=== PATIENT | female | born 1990 | race Caucasian/White ===

== ENCOUNTER → 2020-11-05 09:05 | Outpatient (BNVA) | payer MEDICAID, SELFPAY | PROVIDERS: PCP Nurse Practitioner Family; Visit Provider Physician Assistant ==

== ENCOUNTER 2020-11-23 10:03 | Outpatient (REF) | payer MEDICAID, SELFPAY ==
--- NOTE | ~2020-11-23 | XR_ITS ---
EXAMINATION: XR CHEST CLINICAL INFORMATION: Obesity. COMPARISON: None. TECHNIQUE: 2 views of the chest were obtained. FINDINGS: The lungs are clear. The cardiomediastinal silhouette is normal in size. There is no pleural effusion or pneumothorax. No acute osseous abnormality. Right upper quadrant surgical clips. XR/XR chest 2V IMPRESSION: No acute cardiopulmonary findings.
--- NOTE | 2020-11-23 10:12 | ECG_ITS ---
Test Reason : E66.01 Blood Pressure : / mmHG Vent. Rate : 064 BPM Atrial Rate : 064 BPM P-R Int : 156 ms QRS Dur : 082 ms QT Int : 400 ms P-R-T Axes : 034 043 031 degrees QTc Int : 412 ms Normal sinus rhythm Normal ECG No previous ECGs available Referred By: Wilson Nunn Electronically Signed By:VELIA JOHNSON
[2020-11-23 10:53] LABS: MANUAL DIFF FLAG NO
[2020-11-23 11:02] LABS: Basophils Percent Auto 0.2 % (0-2); Eosinophils Percent Auto 0.2 % (0-4); Estimated Average Glucose 91 mg/dL; Hematocrit 35.9 % (37-47); Hemoglobin 11.1 g/dl (12.0-16.0); Hemoglobin A1c % 4.8 %; Imm Gran Abs Auto 0.01 X10*3/uL (0.00-0.03); Imm Gran Pct Auto 0.2 % (0.0-0.4); Lymphocytes Absolute Auto 1.6 X10*3/uL (1.2-4.9); Lymphocytes Percent Auto 30.9 % (20-40); Mean Corpuscular HGB Conc 30.9 g/dl (31.0-35.0); Mean Corpuscular Hemoglobin 26.8 pg (27.0-33.0); Mean Corpuscular Volume 86.7 fL (80-98); Mean Platelet Volume 9.9 fL (9.4-12.3); Monocytes Absolute Auto 0.3 X10*3/uL (0.1-1.2); Monocytes Percent Auto 6.1 % (2-11); Neutrophils Absolute Auto 3.2 X10*3/uL (2.0-8.3); Neutrophils Percent Auto 62.4 % (45-73); Platelet Count 281 X10*3/uL (160-400); Red Blood Count 4.14 X10*6/uL (4.20-5.50); Red Cell Distribution Width 13.4 % (11.0-16.0); White Blood Count 5.1 X10*3/uL (4.8-10.8)
[2020-11-23 11:30] LABS: Alanine Aminotransferase 21 U/L (0-31); Albumin Level 4.3 g/dL (3.5-5.0); Alkaline Phosphatase 60 U/L (39-117); Anion Gap 12 (12-20); Aspartate Amino Transferase 13 U/L (5-31); Bilirubin Total 0.4 mg/dL (0.0-1.0); Blood Urea Nitrogen 12 mg/dL (9-16); C Reactive Protein 0.43 mg/dL (< or = 0.50); Calcium 9.3 mg/dL (8.4-10.2); Carbon Dioxide 24 mmol/L (22-29); Chloride 108 mmol/L (96-108); Cholesterol 143 mg/dL; Estimated Glomerular Filt Rate > 60; Glucose Random 75 mg/dL (60-115); HDL Cholesterol 42 mg/dL; LDL Cholesterol Calculated 86 mg/dl; Potassium 4.3 mmol/L (3.3-5.1); Sodium 140 mmol/L (135-145); Total Protein 7.1 g/dL (6.5-8.0); Triglycerides 77 mg/dL
[2020-11-23 11:35] LABS: Ferritin 10 ng/mL (10-122); TSH reflex Free T4 1.04 uIU/mL (0.32-4.0)
[2020-11-23 12:10] LABS: Folate 7.6 ng/mL (> or = 4.0); Vitamin B12 204 pg/mL (200-900)
[2020-11-24 08:47] LABS: Insulin Level Total 18.9 uIU/mL
[2020-11-24 12:22] LABS: Calcium (PTHI) 9.7 mg/dL (8.6-10.2); PTHI 25 pg/mL (14-64)
[2020-11-26 02:47] LABS: Zinc 72 mcg/dL (60-130)
[2020-11-26 20:27] LABS: Vitamin A 53 mcg/dL (38-98)
[2020-11-27 06:21] LABS: Vitamin B1 10 nmol/L (8-30)
== END 2020-11-23 10:04 | disposition home or self-care (01) ==
LOC: HO.LAB 10:03
PROVIDERS: Visit Provider Surgery
DX: E66.01 Morbid (severe) obesity due to excess calories (principal)
CPT/HCPCS: 36415; 71046; 80053; 80061; 82306; 82607; 82728; 82746; 83036; 83525; 83970; 84425; 84443; 84590; 84630; 85025; 86140; 93005

== ENCOUNTER → 2020-11-25 08:39 | Outpatient (BNVA) | payer MEDICAID, SELFPAY | PROVIDERS: Visit Provider Surgery ==

== ENCOUNTER → 2020-12-02 13:57 | Outpatient (BNVA) | payer MEDICAID, SELFPAY | PROVIDERS: PCP Nurse Practitioner Family; Visit Provider Dietitian, Registered | DX: E66.01 Morbid (severe) obesity due to excess calories (principal) | CPT/HCPCS: 97802 ==

== ENCOUNTER 2020-12-03 09:29 | Outpatient (REF) | payer MEDICAID, SELFPAY ==
[2020-12-04 13:22] LABS: H Pylori Breath Test DETECTED (NOT DETECTED)
== END 2020-12-03 09:30 | disposition home or self-care (01) ==
LOC: HO.LNP 09:29
PROVIDERS: Surgery; Visit Provider Physician Assistant
DX: E66.01 Morbid (severe) obesity due to excess calories (principal); Z11.0 Encounter for screening for intestinal infectious diseases
CPT/HCPCS: 83013; 99211

== ENCOUNTER 2020-12-14 16:46 | Emergency (ER) | payer MEDICAID, SELFPAY ==
[2020-12-14 17:05] VITALS: BP 123/93; PULSE 82; RESP 17; TEMP 37.1; O2SAT 100; BMI 41.8
--- NOTE | 2020-12-14 17:58 | ED.SKABFB ---
HPI - Skin/Abscess/Foreign Bdy General Chief complaint: Skin/Abscess/Foreign Body Stated complaint: abscess Time Seen by Provider: 12/14/20 17:51 Source: patient Mode of arrival: ambulatory Limitations: no limitations History of Present Illness HPI narrative: 30-year-old old female otherwise healthy denies any past medical or surgical history not currently taking the medication denies currently being last menstrual cycle was 2 weeks ago she presents today with complaint of tender area in the right growing question abscess. States started to no discomfort yesterday and today still present states pea size area. There is no discharge, redness, fever. States she has had this once in the past and went away by itself. MD complaint: abscess/boil Onset (ago): day(s) Tetanus up to date: yes Location: RLE (Right groin) Severity: mild Quality: aching Pain Consistency: intermittent Relieving factors: immobilization Exacerbating factors: none Context: none Associated symptoms: denies other symptoms Treatments prior to arrival: none Related Data Home Medications Medication Instructions Recorded Confirmed buspirone 10 mg tablet 10 mg PO BID 11/05/20 11/05/20 hydroxyzine HCl 25 mg tablet 25 mg PO TID PRN 11/05/20 11/05/20 trazodone 100 mg tablet 100 mg PO BEDTIME PRN 11/05/20 11/05/20 Previous Rx's Medication Instructions Recorded cephalexin 500 mg PO BID #20 cap 12/14/20 sulfamethoxazole-trimethoprim 1 tab PO BID 7 Days #14 tab 12/14/20 [Bactrim DS] Allergies Allergy/AdvReac Type Severity Reaction Status Date / Time hydrocodone [From Vicodin] Allergy Intermediate HIVES Verified 12/14/20 17:05 Review of Systems Review of Systems: Constitutional: No Weight loss, No Fever, No Chills, No Night Sweats, No Fatigue, No Malaise ENT/Mouth: No Hearing loss, No Ear Pain, No Nasal Congestion, No Sinus Pain, No Hoarseness, No sore throat, No Rhinorrhea, No Swallowing Difficulty Eyes: No Eye Pain, No Swelling, No Redness, No Foreign Body, No Discharge, No Vision Changes Cardiovascular: No Chest Pain, No SOB, No Dyspnea on Exertion, No Orthopnea, No Edema, No Palpitations Respiratory: No Cough, No Sputum, No Wheezing, No Smoke Exposure, No Dyspnea Gastrointestinal: No Nausea, No Vomiting, No Diarrhea, No Constipation, No abdominal Pain, No Hematochezia, No Melena Genitourinary: no irregular bleeding, No Dysuria, No Urinary Frequency, No Hematuria, No Urinary Incontinence, No Urgency, No Flank Pain, No Urinary Flow Changes, No Hesitancy Musculoskeletal: No joint pain, No Myalgias, No Joint Swelling Skin: No Skin Lesions, No rash, as noted per hpi Neuro: No Weakness, No Numbness, No Paresthesias, No Loss of Consciousness, No Dizziness, No Headache Psych: No social Issues Heme/Lymph: No Bruising, No Bleeding,No Lymphadenopathy Endocrine: No Polyuria, No Polydipsia, No Temperature Intolerance Yes all other systems are reviewed and are negative [facility] Past Medical History Medical History (Updated 12/14/20 @ 18:17 by Nathan Hinojosa NP) Anxiety Depression History of ectopic Insomnia Morbid obesity Surgical History Hx laparoscopic cholecystectomy Family History Family History (Updated 11/05/20 @ 09:25 by Shima Hercules MA) Father Heart problem Mother Colon cancer Mental health problem Sister Blood transfusion abn reaction or complication, no procedure mishap Brother PTSD (post-traumatic stress disorder) Brother ADHD Son ADHD Daughter Depressed Daughter Depressed Daughter No problems noted. Social History Social History Alcohol intake: never Smoking Status: Current some day smoker Tobacco Type: Cigarette Cigarettes Per Day: 2 Advance Directives: No Advance Directives Information Provided: No Physical Exam Vital Signs: Vital Signs: Last Vital Signs Temp 98.7 F 12/14/20 17:05 Pulse 82 12/14/20 17:05 Resp 17 12/14/20 17:05 BP 123/93 H 12/14/20 17:05 Pulse Ox 100 12/14/20 17:05 Body Mass Index 41.8 Reviewed Const: General: cooperative and healthy appearing; No acute distress or intoxicated appearing Nutritional Appearance: average body habitus Orientation/consciousness: patient oriented x3 HENMT: Head: Yes normal to inspection Ears: hearing grossly normal bilaterally Chest: Chest palpation & inspection: normal inspection of the chest Resp: Effort & Inspection: normal respiratory effort Cardio: Rhythm: regular rhythm Heart sounds: S1 normal heart sound present and S2 normal heart sound present : General: Yes no CVA tenderness Back/Spine/Pelvis: Back: no CVA tenderness Skin: General skin exam: no rashes or lesions noted Full body images: 1. There is a less than 0.5 centimetre indurated area that is slightly tender without any obvious erythema or exudate. Neuro: General: patient oriented x3 Extrem: General: Yes normal to inspection Course Course Course Narrative: Early abscess to the right groin no drainable collection at this time. Will start her on antibiotics have recheck in 3 days. Will return here sooner if any concerns aware that this may get bigger and knee drainage bed this point it is not recommended. She will do home care with warm compresses antibiotics and follow-up instructions. Stable for discharge. Discharge Plan Discharge Clinical Impression: Abscess Patient Disposition: Home, Self-Care Instructions: Abscess (ED) Additional Instructions: You an early developing abscess in the right groin area Warm compresses Take your antibiotics as prescribed Tylenol or ibuprofen [id number] for pain discomfort There is no drainable collection at this time however this may turn into a bigger abscess that needs to be drained. Have a recheck in 3-5 days either here in emergency room or your primary care doctor Thank you Prescriptions: New cephalexin 500 mg capsule 500 mg PO BID Qty: 20 RF: 0 sulfamethoxazole-trimethoprim [Bactrim DS] 800-160 mg tablet 1 tab PO BID 7 Days Qty: 14 RF: 0 No Action hydroxyzine HCl 25 mg tablet 25 mg PO TID PRNRF: 0 buspirone 10 mg tablet 10 mg PO BID RF: 0 trazodone 100 mg tablet 100 mg PO BEDTIME PRNRF: 0 Referrals: Nathan Hinojosa, [employer] [Emergency Midlevel Provider] - 3 days
== END 2020-12-14 18:28 | disposition home or self-care (01) ==
PROVIDERS: Emergency Provider Internal Medicine
DX: L02.214 Cutaneous abscess of groin (principal); F17.210 Nicotine dependence, cigarettes, uncomplicated; Z71.6 Tobacco abuse counseling; Z79.899 Other long term (current) drug therapy
CPT/HCPCS: 99284

== ENCOUNTER → 2020-12-24 08:11 | Outpatient (BNVA) | payer MEDICAID, SELFPAY | PROVIDERS: Visit Provider Dietitian, Registered | DX: E66.01 Morbid (severe) obesity due to excess calories (principal); Z68.41 Body mass index [BMI] 40.0-44.9, adult | CPT/HCPCS: 97803 ==

== ENCOUNTER → 2021-01-14 08:12 | Outpatient (BNVA) | payer MEDICAID, SELFPAY | PROVIDERS: Visit Provider Dietitian, Registered | DX: E66.01 Morbid (severe) obesity due to excess calories (principal) | CPT/HCPCS: 97803 ==

== ENCOUNTER 2021-06-03 00:41 | Emergency (ER) | payer OTHER, SELFPAY ==
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
[2021-06-03 01:00] VITALS: BP 106/77; BP 132/74; PULSE 81; RESP 20; TEMP 36.6; O2SAT 100; BMI 40.4
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
[2021-06-03 01:21] LABS: UPreg QC Valid YES; Urine Pregnancy NEGATIVE (NEGATIVE)
--- NOTE | 2021-06-03 01:59 | PC.NURSE ---
Pt initially refused c-collar w/ EMS, was amenable to placement of collar on arrival to ED, however after CT scan noted pt had again removed own collar. Pt educated by this RN and by CT staff that removing collar prior to imaging results is not recommended. Pt not able to verbalize understanding, states but my neck hurts.
[2021-06-03] MEDS: Diphth,Pertus(ACell),Tet Adult 0.5 ML SYRINGE IM (03:15)
[2021-06-03] MEDS: oxyCODONE HCl Immed Release 5 MG TABLET 10 MG PO (03:16)
== END 2021-06-03 03:18 | disposition home or self-care (01) ==
PROVIDERS: Emergency Provider Emergency Medicine Emergency Medical Services
DX: S06.0X9A Concussion with loss of consciousness of unspecified duration, initial encounter (principal); S00.81XA Abrasion of other part of head, initial encounter; M25.562 Pain in left knee; G44.309 Post-traumatic headache, unspecified, not intractable; M25.561 Pain in right knee; M54.2 Cervicalgia; F17.210 Nicotine dependence, cigarettes, uncomplicated; V43.52XA Car driver injured in collision with other type car in traffic accident, initial encounter; Y93.9 Activity, unspecified; Y92.410 Unspecified street and highway as the place of occurrence of the external cause; Y99.9 Unspecified external cause status; Z79.899 Other long term (current) drug therapy; Z71.6 Tobacco abuse counseling; Z23 Encounter for immunization
CPT/HCPCS: 70450; 72125; 81025; 90471; 90715; 99283; 99284

== ENCOUNTER 2021-07-06 16:07 | Emergency (ER) | payer MEDICAID, SELFPAY ==
[2021-07-06 17:25] VITALS: BP 117/58; PULSE 71; RESP 17; TEMP 36.8; O2SAT 99; BMI 42.3
--- NOTE | 2021-07-06 18:08 | ED_ITS ---
HPI - General Adult General Chief complaint: General Medical Stated complaint: covid exposure Time Seen by Provider: 07/06/21 17:47 Source: patient Mode of arrival: ambulatory Limitations: no limitations History of Present Illness HPI narrative: 31-year-old female here seeking COVID test. Patient tells me she is exposed 3 days who is COVID positive. She is asymptomatic. Related Data Home Medications Medication Instructions Recorded Confirmed buspirone 10 mg tablet 10 mg PO BID 11/05/20 11/05/20 hydroxyzine HCl 25 mg tablet 25 mg PO TID PRN 11/05/20 11/05/20 trazodone 100 mg tablet 100 mg PO BEDTIME PRN 11/05/20 11/05/20 Previous Rx's Medication Instructions Recorded cephalexin 500 mg capsule 500 mg PO BID #20 cap 12/14/20 sulfamethoxazole 800 1 tab PO BID 7 Days #14 tab 12/14/20 mg-trimethoprim 160 mg tablet (Bactrim DS) ibuprofen 400 mg tablet 400 mg PO Q6H PRN #20 tab 06/03/21 Allergies Allergy/AdvReac Type Severity Reaction Status Date / Time hydrocodone [From Vicodin] Allergy Intermediate HIVES Verified 07/06/21 17:25 Review of Systems Review of Systems: Yes all other systems are reviewed and are negative Constitutional: Constitutional: Reports no additional constitutional complaints, Denies body ache(s), Denies chills, Denies fever(s), Denies headache(s) and Denies weakness Eyes: Eyes: Reports no additional eye complaints and Denies change in vision ENT: Reports system reviewed and no additional complaints, except as docu mented, Denies dizziness, Denies headache(s), Denies nasal congestion, Denies nasal discharge and Denies neck pain Cardiovascular: Cardiovascular: Reports no additional cardiovascular complaints, Denies chest pain, Denies leg edema and Denies dyspnea Respiratory: Respiratory: Reports no additional respiratory complaints, Denies cough and Denies dyspnea Gastrointestinal: Gastrointestinal: Reports no additional gastrointestinal complaints, Denies abdominal pain, Denies diarrhea, Denies nausea and Denies vomiting Genitourinary: Genitourinary: Reports no additional female genitourinary complaints and Denies urinary incontinence Musculoskeletal: Musculoskeletal: Reports no additional musculoskeletal complaints, Denies back pain, Denies arthralgias, Denies joint swelling, Denies neck pain, Denies numbness and Denies tingling Integumentary/Breasts: Skin/Breast: Reports system reviewed and no additional complaints, except as docu and Denies rash Neurologic: Reports system reviewed and no additional complaints, except as documented, Denies Abnormal speech present, Denies dizziness, Denies headache(s), Denies numbness, Denies tingling and Denies weakness PMFSH Past Medical History Attestation statement: The following information was validated with the patient. Source: old records reviewed and nursing notes reviewed Medical History Anxiety Depression History of ectopic Insomnia Morbid obesity Surgical History Hx laparoscopic cholecystectomy Family History Family History Father Heart problem Mother Colon cancer Mental health problem Sister Blood transfusion abn reaction or complication, no procedure mishap Brother PTSD (post-traumatic stress disorder) Brother ADHD Son ADHD Daughter Depressed Daughter Depressed Daughter No problems noted. Social History Social History Alcohol intake: never Cigarettes Per Day: 2 Advance Directives: No Advance Directives Information Provided: No Physical Exam Vital Signs: Vital Signs: Last Vital Signs Temp 98.3 F 07/06/21 17:25 Pulse 71 07/06/21 17:25 Resp 17 07/06/21 17:25 BP 117/58 L 07/06/21 17:25 Pulse Ox 99 07/06/21 17:25 Body Mass Index 42.3 Const: General: cooperative, healthy appearing, comfortable and no acute distress Orientation/consciousness: patient oriented x3 Limitations: no limitations HENMT: Head: Yes normal to inspection Ears: hearing grossly normal bilaterally General nose exam: Normal external nose present Face and sinus: Yes normal facial exam Mouth: Normal oral and palatal mucosa present Throat: Yes posterior oropharynx normal Eyes: General: appearance normal, both eyes and all related structures Pupils: Equal, round and reactive pupils present Neck: Neck: Yes normal visual inspection Chest: Chest palpation & inspection: normal inspection of the chest Resp: Effort & Inspection: normal respiratory effort Auscultation: clear to auscultation bilaterally Cardio: Rate: regular rate Rhythm: regular rhythm Peripheral pulses: Peripheral pulses 2+ throughout GI: Inspection: Yes normal to inspection Palpation (GI): Soft to palpation and nontender Auscultation: normal bowel sounds Back/Spine/Pelvis: Thoracic/Lumbar Spine: thoracic and lumbar spine normal to inspection Skin: General skin exam: no rashes or lesions noted Neuro: General: patient oriented x3, no focal motor deficits and normal sensation to monofilament Cranial nerves: Yes Equal, round and reactive pupils present Cognition (Neuro): normal cognition Speech: No Abnormal speech present Gait exam (Neuro): Normal gait present Motor exam (neuro): 5/5 motor strength present throughout Extrem: General: Yes normal to inspection Course Course Course Narrative: 31-year-old female here seeking COVID test after exposure. Asymptomatic Will send COVID screen 1850-COVID screen is negative. Reviewed worrisome signs and symptoms with the patient when to return to the emergency department. Comfortable discharge home. Medical Decision Making Medical Records Medical records reviewed: Yes I reviewed the patient's medical records. Lab Data Lab results reviewed: Yes I reviewed the patient's lab results. Labs: Lab Results 07/06/21 Range/Units 17:54 COVID-19 ([facility]) Negative (Negative) COVID-19 Clin Com See Note Discharge Plan Discharge Clinical Impression: Encounter for medical screening examination Patient Disposition: Home, Self-Care Instructions: Normal Exam (ED) Additional Instructions: COVID test is negative Prescriptions: No Action cephalexin 500 mg capsule 500 mg PO BID Qty: 20 RF: 0 sulfamethoxazole-trimethoprim [Bactrim DS] 800-160 mg tablet 1 tab PO BID 7 Days Qty: 14 RF: 0 ibuprofen 400 mg tablet 400 mg PO Q6H PRN (Reason: pain) Qty: 20 RF: 0 hydroxyzine HCl 25 mg tablet 25 mg PO TID PRNRF: 0 buspirone 10 mg tablet 10 mg PO BID RF: 0 trazodone 100 mg tablet 100 mg PO BEDTIME PRNRF: 0 Referrals: Physician,Unknown J [Primary Care Provider] - 2 days Interventions: ED Discharge Assessment Last Done: 07/06/21 18:34 Discharge Date/Time: 07/06/21 18:35
[2021-07-06 18:16] LABS: COVID-19 Test Negative (Negative)
== END 2021-07-06 18:35 | disposition home or self-care (01) ==
PROVIDERS: Emergency Provider Internal Medicine
DX: Z20.822 Contact with and (suspected) exposure to COVID-19 (principal); F17.210 Nicotine dependence, cigarettes, uncomplicated; Z79.899 Other long term (current) drug therapy
CPT/HCPCS: 36415; 87635; 99283